=== PATIENT | female | born 1955 | race Caucasian/White ===

== ENCOUNTER → 2019-06-19 | Outpatient (REF) | payer OTHER | LOC: M LAB REF 17:14 | PROVIDERS: ATTEND Dermatology | DX: L57.0 Actinic keratosis (principal) ==

== ENCOUNTER → 2022-03-31 | Outpatient (REF) | payer MEDICARE | LOC: M SFHCDERM 16:42 | PROVIDERS: ATTEND Physician Assistant | DX: C44.621 Squamous cell carcinoma of skin of unspecified upper limb, including shoulder (principal); L82.1 Other seborrheic keratosis; L57.0 Actinic keratosis; D18.01 Hemangioma of skin and subcutaneous tissue; L81.8 Other specified disorders of pigmentation; Z88.2 Allergy status to sulfonamides; Z79.899 Other long term (current) drug therapy; Z85.89 Personal history of malignant neoplasm of other organs and systems; Z12.83 Encounter for screening for malignant neoplasm of skin | CPT/HCPCS: 11102; 17000; 17003; 88305; G0463 ==

== ENCOUNTER → 2022-07-06 | Outpatient (REF) | payer MEDICARE | LOC: M SFHCDERM 17:59 | PROVIDERS: ATTEND Physician Assistant | DX: D23.5 Other benign neoplasm of skin of trunk (principal); D09.9 Carcinoma in situ, unspecified; Z88.2 Allergy status to sulfonamides ==